=== PATIENT | female | born 1940 | race African-American/Black ===

== ENCOUNTER 2020-01-13 19:39 | Inpatient (IN) | payer OTHER ==
[~2020-01-13] VITALS: Ht 167.6 cm; Wt 81.6 kg
[2020-01-13] MEDS ORDERED: ATORVASTATIN CA20 MG (20:02)
[2020-01-13] MEDS ORDERED: NITROGLYCERIN0.4 MG (20:02)
[2020-01-13] MEDS ORDERED: CARVEDILOL3.125 MG (20:03)
[2020-01-13] MEDS ORDERED: LANOXIN62.5 MCG (20:03)
--- NOTE | 2020-01-13 20:03 | NUR ---
SE RECIBE PTE ALERTA Y ORIENTADA X3 EN AMBULANCIA ACOMPANA[place] DE FAMILIAR, PTE REFIERE VENIR POR DOLOR DE PECHO Y DIFICULTAD RESPIRATORIA DESDE KATEY. PTE SE RECIBE CON CN COLOCADA. SE MIDEN S/V A PPTE Y SE COLOCA EN UNIDAD DE CHEST PAIN.
--- NOTE | 2020-01-13 20:20 | NUR ---
SE RECIBE PACIENTE ALERTA Y ORIENTADA EN TIEMPO LUGAR Y PERSONA. SE UBICA EN CAMA EN POSICION SEMI IZQUIERDO, BARANDAS ELEVADAS Y FRENOS AJUSTADOS. SE COLOCA A MONITOR CARDIACO DE LA UNIDAD, OXIMETRIA DE PULSO Y NIBP. SE HENRY SIGNOS VITALES LOS MISMOS BP 140/80MMHG (MANUAL), 105 BPM, 22 RESP/MIN, 100% O2. SE ORIENTA A PACIENTE Y FAMILIAR SOBRE TRATAMIENTO ORDENADO POR DRA. TINEO, LAS MISMAS VERBALIZAN ENTENDER. SE COLECTAN MUESTRAS ORDENADAS, SE COLOCA VENOPUNCION PATENTE EN ANTECUBITAL L+ #20 S/L AL MOMENTO, HACIENDO USO DE MEDIDAS ASEPTICAS ADECUADAS. PERSONAL DE JORGE L X, REALIZA PLACA PORTABLE. SE MANTIENE EN OBSERVACION POR CAMBIOS SIGNIFICATIVOS EN URBANO CONDICION.
--- NOTE | 2020-01-13 21:25 | NUR ---
SE ORIENTA A PACIENTE Y FAMILIAR SOBRE MEDICAMENTOS ORDENADOS POR HAYLEY. RENTA, LAS MISMAS VERBALIZAN ENTENDER. SE ADMINISTRAN MEDICAMENTOS HACIENDO USO DE MEDIDAS ASEPTICAS CORRESPONDIENTES. SE MANTIENE PTE EN OBSERVACION POR CAMBIOS EN URBANO CONDICION.
--- NOTE | 2020-01-14 00:04 | NUR ---
01/13/20 2300 PACIENTE ALERTA Y ORIENTADA X3. EN POSICION SENTADA EN CAMA CON BARANDAS ELEVADAS Y INTERCOM ACCESIBLE. RECIBIENDO OXIGENO POR CANULA NASAL A 1 L Y SATURANDO OXIGENO MANUAL A 93%. CONECTADA A MONITOR CARDIACO PRESENTANDO JESSICA FIBRILACION ATRIAL. ABDOMEN DEPRESIBLE AL TACTO Y PERISTALSIS PRESENTE. H/L PATENTE Y RIP DE EDEMA Y ERITEMA EN BRAZO DERECHO Y EN MANO IZQUIERDA. SE OBSERVA EDEMA LEVE EN AMBAS PIERNAS. PENDIENTE MUESTRA DE U/A. PENDIENTE ABG QUE INTENTARON EN DOS OCASIONES Y NO SE LOGRO LA MISMA. SE MANTIENE BAJO OBSERVACION POR CAMBIOS SIGNIFICATIVOS EN UNIDAD DE DOLOR DE PECHO. 2350 SE REALIZO CAMBIO DE PANAL, PACIENTE CON EVACUACION PASTOSA COLOR PRASANNA LIN. PACIENTE HABIA ORINADO. SE PREGUNTA A LA HAYLEY. RENTA SI DESEA ORDENARLE JESSICA SONDA URINARIA DEBIDO A QUE LA PACIENTE ES ENCAMADA Y REFIERE QUE SI. 2359 SE INSERTO SONDA URINARIA BAJO MEDIDAS ASEPTICAS Y ESTERILES. PACIENTE ELIMINO 50ML DE ORINA CLEAR.
--- NOTE | 2020-01-14 00:51 | NUR ---
0035 SE ORIENTA A PACIENTE SOBRE PROCEDIMIENTO A REALIZAR Y REFIRIO ENTENDER. SE REALIZO MUESTRA DE LABORATORIO BAJO MEDIDA ASEPTICA. PACIENTE CONSULTADA CON INTERNISTA Y CARDIOLOGO EN ESPERA DE VISITA DE LOS MISMOS. PENDIENTE ECHO ORDENADO POR . 0040 MR. OLIVEROS, PERSONAL DE TERAPIA RESPIRATORIA REFIRIO QUE INTENTO EN DOS OCASIONES REALIZAR LOS ABG Y NO SE LOGRARON LOS MISMOS. PACIENTE LE REFIRIO QUE NO QUERIA QUE LA PINCHARAN MAS. MR. OLIVEROS LE NOTIFICO A LA DRA. CRAFT.
--- NOTE | 2020-01-14 07:03 | NUR ---
SE RECIBE PACIENTE FEMENI A DE 79 ANOS DE EDAD UBICADA EN AREA DE CHEST PAIN EN CAMA CON BARANDAS ELEVADAS, AL MOMENTO PACIENTE NO ESTA EN COMPANIA DE FAMILIAR. SE OBSERVA PACIENTE ALERTA CONCIENTE Y ORIENTADA X 3. PACIENTE REFIERE QUE PADECE DE ARTRITIS REUMATOIDE E HIPERTENCION. PACIENTE AL MOMENTO DE LA ENTREGA MANTIENE 2 VENOPUNCIONES, JESSICA LOCALIZADA EN ANTEBRAZO DERECHO CON ANGIO #20 Y OTRA LOCALIZADA EN MANO IZQUIERDA CON ANGIO #20, AMBAS RIP DE EDEMA Y ERITEMA. SE HENRY SIGNOS VITALES AL MOMENTO ESTABLES Y SE REAALIZA DXT, PACIENTE QUEDA PENDEINTE DE REALIZAR ESTUDIO 2 D ECHO Y CONSULTA CON CARDIOLOGO Y MEDICINA INTERNA. SE MANTIENE A PACIENTE EN OBSERVACION POR CAMBIOS EN CONDICION Y CONTINUIDAD DE NADER.
== END 2020-01-18 18:27 | disposition home or self-care (01) | DRG 291 ==
LOC: ER 19:39 → MEDJ 01-14 09:04 → SEC-K 01-14 09:04 → MEDJ 01-14 11:15
PROVIDERS: ADMIT Internal Medicine; ATTEND Internal Medicine
PROC: B246ZZZ Ultrasonography of Right and Left Heart (ICD-10-PCS; principal; 2020-01-14)
PROC: 4A12X4Z Monitoring of Cardiac Electrical Activity, External Approach (ICD-10-PCS; 2020-01-15)
DX: I11.0 Hypertensive heart disease with heart failure (principal); I61.8 Other nontraumatic intracerebral hemorrhage; Z20.828 Contact with and (suspected) exposure to other viral communicable diseases; I20.8 Other forms of angina pectoris; I48.0 Paroxysmal atrial fibrillation; I27.29 Other secondary pulmonary hypertension; I50.89 Other heart failure

== ENCOUNTER 2020-08-07 14:18 | Inpatient (IN) | payer OTHER ==
[~2020-08-07] VITALS: Ht 167.6 cm; Wt 86.2 kg
[~2020-08-07 14:18] MED LIST: ATORVASTATIN CA20 MG; CARVEDILOL3.125 MG; LANOXIN62.5 MCG; NITROGLYCERIN0.4 MG
== END 2020-08-19 18:13 | disposition home or self-care (01) | DRG 690 ==
LOC: ER 14:18 → MEDJ 23:39
PROVIDERS: Surgery; ADMIT Internal Medicine; ATTEND Internal Medicine
PROC: 0DBN8ZX Excision of Sigmoid Colon, Via Natural or Artificial Opening Endoscopic, Diagnostic (ICD-10-PCS; principal; 2020-08-14 14:30)
DX: N13.6 Pyonephrosis (principal); I48.20 Chronic atrial fibrillation, unspecified; K59.09 Other constipation; I11.0 Hypertensive heart disease with heart failure; I50.9 Heart failure, unspecified; N32.0 Bladder-neck obstruction; I27.22 Pulmonary hypertension due to left heart disease; Z74.01 Bed confinement status; Z79.01 Long term (current) use of anticoagulants; Z20.822 Contact with and (suspected) exposure to COVID-19; D12.5 Benign neoplasm of sigmoid colon